=== PATIENT | male | born 1950 | race Caucasian/White ===

== ENCOUNTER → 2017-06-20 | Day surgery (SDC) | payer MEDICARE, OTHER ==
[~2017-06-20] VITALS: Ht 160 cm; Wt 114.4 kg
[~2017-06-20] MED LIST: ACETAMINOPHEN 1000 MG/100 ML 0 ML IV ONE; ALBUAER3 INH; ANDR1.62 TOPICAL; BUPR300T PO; CHLORHEXIDINE GLUCONATE 2 % 1 PACK (2 CLOTHS) TOPICAL PRN; CLON.5 PO; FURO40TA PO; GABA300C5 PO; HYDR-3583 PO; IPRASOL INH; LACTATED RINGER'S 1000 ML INJ 500 ML IV SCH; LACTATED RINGER'S 1000 ML IV PRN; LEVO88TA2 PO; LISI-515 PO; MELO7.5T27 PO; METF500T4 PO; METOPROLOL TARTRATE 25 MG TAB PO PRN; MIRA0.12 PO; MULT1TAB46 PO; OMEP20TA93 PO; POTA10TA2 PO; POVIDONE IODINE 5% (ANTISEPSIS KIT) 4 APPLICATIONS EACH NARE PRN; PROPOFOL 200 MG/20 ML AMP IV ONE; SODIUM CHLORID 0.9% 500 ML IV PRN; SPIRCAP INH; SYMB160A INH; THEO400T2 PO; VITACAP7 PO; [UNRECOGNIZED DRUG - CODE] IMPLANT; ceFAZolin 2 GM PREMIX 50 ML IV SCH
[2017-06-20 06:34] VITALS: BP 139/74; PULSE 111; RESP 20; TEMP 98.8; O2SAT 98
== END | disposition home or self-care (01) ==
LOC: HSDC 05:49
PROVIDERS: ATTEND Orthopaedic Surgery
DX: G56.01 Carpal tunnel syndrome, right upper limb (principal); Z53.8 Procedure and treatment not carried out for other reasons
CPT/HCPCS: G0463; J3010; J7120; 99211; J0131